=== PATIENT | male | born 1995 | race Caucasian/White ===

== ENCOUNTER 2016-10-23 22:38 | Emergency (ER) | payer BC ==
[~2016-10-23] VITALS: Ht 185.4 cm; Wt 81.5 kg
[2016-10-23 22:43] VITALS: BP 134/92; TEMP 98.6
[2016-10-23] MEDS ORDERED: CELEXA 20MG20 MG/TAB PO (22:45)
[2016-10-23 23:32] VITALS: PULSE 73
== END 2016-10-23 23:32 | disposition home or self-care (01) ==
LOC: COL.ER 22:38
DX: L23.7 Allergic contact dermatitis due to plants, except food (principal)
CPT/HCPCS: J7512